=== PATIENT | female | born 1985 | race Caucasian/White ===

== ENCOUNTER 2018-05-03 11:08 | Emergency (ER) | payer OTHER ==
[~2018-05-03] VITALS: Ht 175.3 cm; Wt 59.5 kg
[~2018-05-03 11:08] MED LIST: CHROMAGEN,1 CAPSULE PO; IBUPROFEN800 MG PO; MOBIC7.5 MG PO; MOTRIN800 MG PO; PRENATAL TABLE1 EAC3 PO; PROGESTERONE; TYLENOL EXTRA500 MG PO; ZANTAC150 MG PO
[2018-05-03 11:39] LABS: HEMATOCRIT 36.3 % (36.0-46.0); HEMOGLOBIN 12.5 G/DL (11.9-15.5); MCH 30.2 PG (29.0-34.0); MCHC 34.4 G/DL (30.0-36.0); MCV 87.7 FL (83-99); PLATELET COUNT 172 K/uL (156-360); RBC DIS.WIDTH-CV 12.5 % (11.8-14.6); RBC DIS.WIDTH-SD 40.1 % (39-53); RED BLOOD COUNT 4.14 M/uL (3.80-5.20); WHITE BLOOD COUNT 7.2 K/uL (4.1-10.2)
[2018-05-03 11:48] LABS: CHLORIDE 107 mEq/L (99-109); POTASSIUM 3.3 mEq/L (3.7-5.4); SODIUM 137 mEq/L (136-147)
[2018-05-03 11:50] LABS: GLUCOSE 106 mg/dL (70-99)
[2018-05-03 11:54] LABS: CREATININE 0.7 mg/dL (0.6-1.3); GFR ESTIMATE (CALCULATED) > 59 mL/min/
[2018-05-03 11:55] LABS: UREA NITROGEN (BUN) 9 mg/dL (9-23)
[2018-05-03 12:26] LABS: QUANTITATIVE HCG 26140.7 MIU/ML
[2018-05-03 13:16] LABS: APPEARANCE CLEAR ((CLEAR)); BILIRUBIN NEGATIVE; BLOOD NEGATIVE; COLOR COLORLESS ((YELLOW)); GLUCOSE (STRIP) NEGATIVE; KETONES NEGATIVE; LEUKOCYTES NEGATIVE; NITRITE NEGATIVE; PROTEIN (STRIP) NEGATIVE; SPECIFIC GRAVITY 1.003 (1.000-1.030); UCUL ADDED? NO; UROBILINOGEN 0.2 MG/DL (0.2-1.0)
[2018-05-03 14:45] VITALS: BP 99/68
== END 2018-05-03 14:59 | disposition home or self-care (01) ==
LOC: EME 11:08
PROVIDERS: Emergency Medicine
DX: O99.89 Other specified diseases and conditions complicating pregnancy, childbirth and the puerperium (principal); R42 Dizziness and giddiness; R10.2 Pelvic and perineal pain; R11.0 Nausea; Z3A.01 Less than 8 weeks gestation of pregnancy
CPT/HCPCS: 76801; 80048; 81003; 84702; 85027; 86900; 86901; 93005; 99281; 99284; J7030

== ENCOUNTER 2018-05-31 15:26 | Emergency (ER) | payer OTHER ==
[~2018-05-31] VITALS: Ht 172.7 cm; Wt 64.1 kg
[2018-05-31 16:29] LABS: HEMATOCRIT 33.9 % (36.0-46.0); HEMOGLOBIN 11.8 G/DL (11.9-15.5); MCH 29.8 PG (29.0-34.0); MCHC 34.8 G/DL (30.0-36.0); MCV 85.6 FL (83-99); PLATELET COUNT 162 K/uL (156-360); RBC DIS.WIDTH-CV 12.7 % (11.8-14.6); RBC DIS.WIDTH-SD 39.4 % (39-53); RED BLOOD COUNT 3.96 M/uL (3.80-5.20); WHITE BLOOD COUNT 10.4 K/uL (4.1-10.2)
[2018-05-31 16:44] LABS: LIPASE 56 U/L (1.0-51.0)
[2018-05-31 16:50] LABS: APPEARANCE CLEAR ((CLEAR)); BILIRUBIN NEGATIVE; BLOOD NEGATIVE; COLOR YELLOW ((YELLOW)); GLUCOSE (STRIP) 50; KETONES NEGATIVE; LEUKOCYTES TRACE; NITRITE NEGATIVE; PROTEIN (STRIP) NEGATIVE; SPECIFIC GRAVITY 1.019 (1.000-1.030)
[2018-05-31 16:53] LABS: BACTERIA RARE /HPF; EPITHELIAL CELLS RARE /HPF; MUCUS 2+ /LPF; RED BLOOD CELLS 0-5 /HPF (0-5); UCUL ADDED? NO; WHITE BLOOD CELLS 0-5 /HPF (0-5)
[2018-05-31 16:56] LABS: ALBUMIN 3.9 g/dL (3.2-4.8); CHLORIDE 104 mEq/L (99-109); POTASSIUM 3.5 mEq/L (3.7-5.4); SODIUM 135 mEq/L (136-147)
[2018-05-31 16:58] LABS: GLUCOSE 96 mg/dL (70-99)
[2018-05-31 16:59] LABS: TOTAL PROTEIN 6.7 g/dL (6.4-8.3)
[2018-05-31 17:00] LABS: TOTAL BILIRUBIN 0.5 mg/dL (0.0-1.0)
[2018-05-31 17:02] LABS: ALKALINE PHOSPHATASE 52 IU/L (3-129); CREATININE 0.7 mg/dL (0.6-1.3); GFR ESTIMATE (CALCULATED) > 59 mL/min/
[2018-05-31 17:03] LABS: UREA NITROGEN (BUN) 10 mg/dL (9-23)
[2018-05-31 17:04] LABS: AST (GOT) 14 IU/L (2-34)
[2018-05-31 17:05] LABS: ALT (GPT) 18 IU/L (3-49)
[2018-05-31 17:40] LABS: QUANTITATIVE HCG 102420.1 MIU/ML
[2018-05-31] MEDS ORDERED: REGLAN10 MG PO (18:53)
[2018-05-31 19:00] VITALS: BP 100/59
== END 2018-05-31 19:01 | disposition home or self-care (01) ==
LOC: EME 15:26
DX: O26.891 Other specified pregnancy related conditions, first trimester (principal); R10.12 Left upper quadrant pain; R11.0 Nausea; Z3A.10 10 weeks gestation of pregnancy; Z88.8 Allergy status to other drugs, medicaments and biological substances
CPT/HCPCS: 76705; 76801; 80053; 81003; 83690; 84702; 85027; 99281; 99285; J2765; J7030

== ENCOUNTER 2018-06-04 15:52 | Emergency (ER) | payer OTHER ==
[~2018-06-04] VITALS: Ht 175.3 cm; Wt 64.0 kg
[~2018-06-04 15:52] MED LIST changes: +REGLAN10 MG PO
[2018-06-04 16:24] LABS: HEMATOCRIT 34.9 % (36.0-46.0); HEMOGLOBIN 12.3 G/DL (11.9-15.5); MCH 29.9 PG (29.0-34.0); MCHC 35.2 G/DL (30.0-36.0); MCV 84.9 FL (83-99); PLATELET COUNT 190 K/uL (156-360); RBC DIS.WIDTH-CV 12.5 % (11.8-14.6); RBC DIS.WIDTH-SD 38.5 % (39-53); RED BLOOD COUNT 4.11 M/uL (3.80-5.20); WHITE BLOOD COUNT 10.2 K/uL (4.1-10.2)
[2018-06-04 16:32] LABS: ALBUMIN 4.1 g/dL (3.2-4.8); CHLORIDE 105 mEq/L (99-109); POTASSIUM 3.7 mEq/L (3.7-5.4); SODIUM 136 mEq/L (136-147)
[2018-06-04 16:34] LABS: GLUCOSE 84 mg/dL (70-99); TOTAL PROTEIN 7.1 g/dL (6.4-8.3)
[2018-06-04 16:38] LABS: ALKALINE PHOSPHATASE 58 IU/L (3-129); CREATININE 0.7 mg/dL (0.6-1.3); GFR ESTIMATE (CALCULATED) > 59 mL/min/; TOTAL BILIRUBIN 0.8 mg/dL (0.0-1.0)
[2018-06-04 16:39] LABS: UREA NITROGEN (BUN) 12 mg/dL (9-23)
[2018-06-04 16:40] LABS: AST (GOT) 17 IU/L (2-34)
[2018-06-04 16:41] LABS: ALT (GPT) 17 IU/L (3-49)
[2018-06-04 17:04] LABS: QUANTITATIVE HCG 79872.4 MIU/ML
[2018-06-04] MEDS ORDERED: DICLEGIS DR 101 EACH PO (19:39)
[2018-06-04 20:29] VITALS: BP 117/75
[2018-06-05] MEDS ORDERED: PROGESTERONE200 MG VG (16:05)
== END 2018-06-04 20:30 | disposition home or self-care (01) ==
LOC: EME 15:52
DX: O21.0 Mild hyperemesis gravidarum (principal); R51 Headache; R42 Dizziness and giddiness
CPT/HCPCS: 80053; 84702; 85027; 99281; 99285; J2405; J7030